=== PATIENT | female | born 1940 | race Caucasian/White ===

== ENCOUNTER 2016-12-03 09:36 | Observation (INO) | payer MEDICARE, OTHER ==
--- NOTE | ~2016-12-03 | HP ---
History And Physical [address] [place]. [address] NAME: GERRY VELAZQUEZ : 44 STATUS : DIS Manny PAT#: [id number] AGE: 76 ADM/REG DATE : 12/03/16 MR#: [id number] REPORT SERV DATE: 12/10/16 DICTATED BY: SAMAN ORO DATE: 12/10/16 REPORT STATUS : Draft TRANSCRIBED BY: MODL DATE: 12/10/16 DATE OF ADMISSION: 12/03/2016 CHIEF COMPLAINT: Claudication. HISTORY OF PRESENT ILLNESS: Ms. Gerry Velazquez is a very pleasant female presenting with evidence of claudication symptoms of the bilateral lower extremities. Recommendations were made for arteriography to define her iliac arterial system in the lower extremities, arterial circulation with potential for endovascular repair. PAST MEDICAL HISTORY: Consistent with abdominal aortic aneurysm, essential hypertension, PVD, femoral-femoral bypass, history of CVA, history of intracranial aneurysm, history of coronary artery disease with stent, positive smoking history. SOCIAL HISTORY: Smoker, half pack per day. No alcohol. Smoker greater than 20 years. FAMILY HISTORY: Positive for diabetes and heart disease in mother and father. REVIEW OF SYSTEMS: Claudication symptoms, otherwise normal. ALLERGIES: PENICILLIN. PHYSICAL EXAMINATION: HEAD/NECK: Without bruits. HEART: Regular rate and rhythm. No murmurs. LUNGS: Clear. ABDOMEN: Nontender. PULSE EXAM: Shows weaken femoral pulses bilateral. No pedal pulses. NEURO/MUSCULOSKELETAL: Grossly normal. IMPRESSION: Ms. Gerry Velazquez is a very pleasant 76-year-old female presenting with evidence of arterial insufficiency of the lower extremities with recommendations made for angiogram and potential for endovascular repair. We will make arrangements for her care. CL/MODL Saman Oro M.D. / [id number] CC: Saman Oro M.D. History And Physical [address] [address] NAME: GERRY VELAZQUEZ : 44 STATUS : DIS Manny PAT#: [id number] AGE: 76 ADM/REG DATE : 12/03/16 MR#: [id number] REPORT SERV DATE: 12/10/16 DICTATED BY: SAMAN ORO DATE: 12/10/16 REPORT STATUS : Draft TRANSCRIBED BY: VIVIAN DATE: 12/10/16 Sai Robins
--- NOTE | ~2016-12-03 | OP ---
Record Of Operation [facility] [address] [place]. [address] NAME: GERRY VELAZQUEZ : 44 STATUS : DIS Manny PAT#: [id number] AGE: 76 ADM/REG DATE : 12/03/16 MR#: [id number] REPORT SERV DATE: 12/05/16 DICTATED BY: SAMAN ORO DATE: 12/04/16 REPORT STATUS : Draft TRANSCRIBED BY: MODL DATE: 12/04/16 DATE OF PROCEDURE: 12/03/2016 PREPROCEDURE DIAGNOSIS: Bilateral lower extremity claudication pain. POSTOPERATIVE DIAGNOSES: 1. Left common iliac artery obstructive process. 2. Patent [id number] fem-fem bypass. PROCEDURE PERFORMED: 1. Aortogram with bilateral pelvic runoff and proximal lower extremity runoff. 2. Angioplasty stent reconstruction of left common iliac artery 10 x 60 stent, 8 x 80 balloon angioplasty. 3. Angioplasty of the left external iliac artery, 8 x 80. ATTENDING SURGEON: Saman Oro M.D. ANESTHESIA: Local MAC. COMPLICATIONS: None. INDICATION FOR PROCEDURE: Secondary to this pleasant 76-year-old female presenting with evidence of increasing lower extremity complaints, claudication symptoms, and pain. The patient has both neurologic and arterial component to her disease process. Recommendations were made for arteriography to further define her peripheral vascular system and repair this if appropriate. Risks and benefits were discussed. Consent was obtained. DETAILS OF PROCEDURE: The patient was brought to the endovascular operating room, placed in supine position, prepped and draped in routine sterile fashion with attention to the bilateral groin region. The left superficial femoral artery was then catheterized in a retrograde fashion with a micropuncture needle, followed by a wire and a sheath. Arteriogram demonstrated wide patency of the common femoral artery on the left, patent fem- fem bypass. A stent noted in the external iliac artery with a narrowing of approximately 40%-50% and evidence of common iliac artery obstruction. A sheath was placed. 6-Montserratian sheath was then placed. Retrograde arteriogram of the iliac artery was then performed confirming a 60% obstruction of the left common iliac artery. A 10 x 60 self-expanding S.M.A.R.T stent was then passed in position and the left common carotid artery deployed and angioplasty was then performed with an 8 x 80 balloon, adequately opening this space. The external iliac artery stent that was already present was then angioplastied with an 8 x 80 balloon for a minute duration to improve this caliber. Completion of imaging showed wide patency of the common and external iliac arteries as an inflow to both lower legs. Angiogram of the fem-fem bypass and the proximal superficial femoral arteries were noted to be widely patent. The left superficial femoral artery was then closed with [employer]. The patient tolerated the procedure well. Record Of Operation [address] [place]. [address] NAME: GERRY VELAZQUEZ : 44 STATUS : DIS Manny PAT#: [id number] AGE: 76 ADM/REG DATE : 12/03/16 MR#: [id number] REPORT SERV DATE: 12/05/16 DICTATED BY: SAMAN ORO DATE: 12/04/16 REPORT STATUS : Draft TRANSCRIBED BY: VIVIAN DATE: 12/04/16 CL/VIVIAN Saman Oro M.D. / [id number] CC: John Vega
[~2016-12-03 09:36] MED LIST: ASAB PO; BETAPACE80 PO; HYZAAR 100/25 T1 TAB PO; PLAVIX PO; PRAVACHOL80 MG PO
[2016-12-03 11:35] LABS: BASOPHILS 0.5 %; BASOPHILS ABSOLUTE 0.04 10/3/uL (0.0-0.16); EOSINOPHILS 1.8 %; EOSINOPHILS ABSOLUTE 0.15 10/3/uL (0.0-0.53); HEMATOCRIT 38.9 % (36.0-48.0); HEMOGLOBIN 12.9 g/dL (12.0-16.0); IMMATURE GRANULOCYTES 0.1 %; IMMATURE GRANULOCYTES ABSOLUTE 0.01 10/3/uL (0.0-0.11); LYMPHOCYTES 24.6 %; LYMPHOCYTES ABSOLUTE 2.01 10/3/uL (0.67-4.30); MEAN CORPUS HGB CONC 33.2 g/dL (32.0-36.0); MEAN CORPUSCULAR HEMOGLOB 29.4 pg (26.0-34.0); MEAN CORPUSCULAR VOLUME 88.6 fL (80-100); MEAN PLATELET VOLUME 10.8 fL (9.2-13.0); MONOCYTES 7.8 %; MONOCYTES ABSOLUTE 0.64 10/3/uL (0.21-1.20); NEUTROPHILS 65.2 %; NEUTROPHILS ABSOLUTE 5.31 10/3/uL (2.02-8.40); PLATELET COUNT 259 10/3/uL (150-400); RBC DISTRIBUTION WIDTH 13.4 % (12.0-16.0); RED CELL COUNT 4.39 10/6/uL (4.0-5.6); WHITE BLOOD CELLS 8.2 10/3/uL (4.5-10.5)
[2016-12-03 11:36] LABS: MANUAL DIFF NO %
[2016-12-03 11:37] LABS: PROTIME (NOT ORD) 13.5 SEC (12.0-14.5)
[2016-12-03 11:55] LABS: BUN (BLOOD UREA NITROGEN) 24 MG/DL (6-23); CALCIUM, SERUM 9.6 MG/DL (8.5-10.4); CHLORIDE, SERUM 106 MMOL/L (96-112); CO2 (CARBON DIOXIDE) 28 MMOL/L (24-34); CREATININE 0.87 MG/DL (0.55-1.02); GFR AFRICAN AMERICAN 76 ML/MIN (>=60); GFR NON AFRICAN AMERICAN 66 ML/MIN (>=60); GLUCOSE, SERUM 91 MG/DL (60-99); POTASSIUM, SERUM 4.5 MMOL/L (3.5-5.3); SODIUM, SERUM 141 MMOL/L (135-148)
== END 2016-12-04 11:50 | disposition home or self-care (01) ==
LOC: SDC 09:36 → SSU1 17:12
PROVIDERS: Specialist
PROC: 047D34Z Dilation of Left Common Iliac Artery with Drug-eluting Intraluminal Device, Percutaneous Approach (ICD-10-PCS; principal; 2016-12-03 13:00)
PROC: 047J3ZZ Dilation of Left External Iliac Artery, Percutaneous Approach (ICD-10-PCS; 2016-12-03 13:00)
DX: I74.5 Embolism and thrombosis of iliac artery (principal); I10 Essential (primary) hypertension; E78.5 Hyperlipidemia, unspecified; F17.210 Nicotine dependence, cigarettes, uncomplicated; I25.10 Atherosclerotic heart disease of native coronary artery without angina pectoris; I73.9 Peripheral vascular disease, unspecified; E78.00 Pure hypercholesterolemia, unspecified; I25.2 Old myocardial infarction; Z88.0 Allergy status to penicillin; Z88.1 Allergy status to other antibiotic agents; Z79.82 Long term (current) use of aspirin; Z79.899 Other long term (current) drug therapy; Z90.49 Acquired absence of other specified parts of digestive tract; Z90.710 Acquired absence of both cervix and uterus; Z98.890 Other specified postprocedural states
CPT/HCPCS: 37221; 37222; 71020; 75710; 80048; 85025; 85610; 93005; A9270-GY; C1725; C1769; C1876; C1894; G0378; J2250; J3010; Q9966